=== PATIENT | male | born 1945 | race Caucasian/White ===

== ENCOUNTER 2020-06-25 17:00 | Outpatient (CLI) | payer MEDICARE | END 2020-06-25 17:01 | disposition home or self-care (01) | LOC: COV 17:00 | PROVIDERS: ATTEND Family Medicine | DX: M79.10 Myalgia, unspecified site (principal); R53.83 Other fatigue; R68.83 Chills (without fever); R19.7 Diarrhea, unspecified; Z20.822 Contact with and (suspected) exposure to COVID-19 ==

== ENCOUNTER 2020-07-28 22:05 | Emergency (ER) | payer MEDICARE ==
--- NOTE | 2020-07-28 22:22 | ED Physician Documentation ---
History of Present Illness - Stated complaint Stated Complaint: N/V, DIARRHEA - Chief complaint Chief Complaint: Abd Pain - History obtained from History obtained from: Patient - History of Present Illness Timing: How many days ago (2) Pain level now: 0 Improved by: rest Worsened by: trying to stand (too weak to do so) Associated symptoms: diarrhea - Additonal information Additional information: patient says 2 days ago he had mid/lower back pain (cannot recall if it was on one side or both) with radiation of pain around to upper abdomen. This was associated with nausea and vomiting. He says these symptoms have resolved completely (by the end of the day 2 days ago). He says that yesterday and again today, he slept throughout most of the day, which is entirely abnormal for him. He says he had a few episodes of diarrhea over past 24 hours, and has had in creasing generalized weakness and today had trouble even sitting up. He says that tonight around 6 PM, his woke him up and insisted he come to ED for evaluation. He says he had chills/sweats yesterday but did not measure his temperature then; he did measure it earlier today and it was "normal" (per patient). Review of Systems Constitutional: reports: Chills, Fatigue, Sweats Eyes: reports: Reviewed and negative Ears: reports: Reviewed and negative Nose: reports: Reviewed and negative Throat: reports: Reviewed and negative Cardiac: reports: Reviewed and negative Respiratory: reports: Reviewed and negative GI: reports: Abdominal Pain (2 days ago, resolved), Nausea (resolved 2 days ago), Vomiting (2 days ago but resolved). denies: Abdominal Swelling, Constipation, Diarrhea, Hematemesis, Bloody / black stool : denies: Dysuria, Frequency, Hematuria Skin: reports: Reviewed and negative Musculoskeletal: reports: Reviewed and negative Neurologic: reports: Generalized weakness. 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) PD PAST MEDICAL HISTORY - Past Medical History Past Medical History: Yes Cardiovascular: Hypertension, High cholesterol, Atrial fibrillation Endocrine/Autoimmune: Type 2 diabetes - Past Surgical History Past Surgical History: Yes General: Cholecystectomy, Splenectomy - Present Medications Home Medications: Ambulatory Orders Medication Instructions Recorded Confirmed Allopurinol [Zyloprim] 300 mg PO DAILY 07/28/20 07/28/20 Ezetimibe [Zetia] 10 mg PO DAILY 07/28/20 07/28/20 Lisinopril [Zestril] 2.5 mg PO DAILY 07/28/20 07/28/20 Simvastatin [Zocor] 40 mg PO DAILY 07/28/20 07/28/20 carvediloL [Coreg] 12.5 mg PO BID 07/28/20 07/28/20 metFORMIN [Glucophage] 500 mg PO BID 07/28/20 07/28/20 - Allergies Allergies/Adverse Reactions: Allergies Allergy/AdvReac Type Severity Reaction Status Date / Time No Known Drug Allergies Allergy Verified 07/28/20 22:21 - Living Situation Living Situation: reports: With spouse/s.o. 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, Normal speech Eye Opening: Spontaneous Motor: Obeys Commands Verbal: Oriented GCS Score: 15 PD ED PE EXPANDED - Cardiac Cardiac: Tachy, Irregularly irregular Results - Vitals Vitals: Vital Signs - 24 hr 07/28/20 07/28/20 07/29/20 22:05 22:50 00:19 Temperature 36.8 C 36.8 C 37 C Heart Rate 115 H 105 H 131 H Respiratory 18 15 35 H Rate Blood Pressure 91/56 L 91/56 L 200/175 H O2 Saturation 95 94 07/29/20 07/29/20 07/29/20 00:33 00:40 01:07 Temperature 38.5 C H 39.6 C H Heart Rate 118 H 105 H 103 H Respiratory 33 H 26 H 26 H Rate Blood Pressure 146/76 H 107/66 O2 Saturation 98 97 07/29/20 07/29/20 07/29/20 01:26 01:37 01:44 Temperature 39.2 C H 39.0 C H 38.8 C H Heart Rate 118 H 107 H 100 Respiratory 26 H 24 26 H Rate Blood Pressure 107/71 103/67 99/72 O2 Saturation 98 99 99 07/29/20 07/29/20 07/29/20 01:52 02:14 02:26 Temperature 38.7 C H 38.6 C H 38.4 C H Heart Rate 112 H 106 H 110 H Respiratory 24 24 25 H Rate Blood Pressure 101/75 95/65 86/46 L O2 Saturation 96 3 L 95 07/29/20 07/29/20 07/29/20 02:30 02:33 03:10 Temperature 38.4 C H 38.4 C H 38.2 C H Heart Rate 117 H 104 H 102 H Respiratory 27 H 28 H 24 Rate Blood Pressure 90/60 93/59 L 89/46 L O2 Saturation 99 93 3 L Oxygen O2 Source Nasal cannula Oxygen Flow Rate 3 - EKG (time done) No standard instances Rate: Rate (enter#) (118) Rhythm: Atrial fibrillation Orma: LAD Ischemia: Normal ST segments, T wave inversion (III (and flat T aVF)) - Labs Labs: Laboratory Tests 07/28/20 07/28/20 07/28/20 22:35 22:35 22:35 WBC 37.4 H* RBC 4.92 Hgb 16.4 Hct 46.2 MCV 93.9 MCH 33.3 H MCHC 35.5 RDW 14.5 Plt Count 133 MPV 13.1 H Neut # (Auto) Not Reportable Lymph # (Auto) Not Reportable Lyon # (Auto) Not Reportable Eos # (Auto) Not Reportable Baso # (Auto) Not Reportable Absolute Nucleated RBC Not Reportable Total Counted 100 Band Neuts % (Manual) 20 H Abnorm Lymph % (Manual) 0 Metamyelocytes % 2 H Nucleated RBC % Not Reportable Neutrophils # (Manual) 34.0 H Lymphocytes # (Manual) 0.7 L Monocytes # (Manual) 1.9 H Eosinophils # (Manual) 0.0 Basophils # (Manual) 0.0 Differential Comment MANUAL DIFFERENTIAL WBC Morphology 1+ VACUOLATION Platelet Estimate NORMAL (130-450,000) Platelet Morphology 1+ GIANT PLATELETS RBC Morph Micro Appear NORMAL APPEARANCE PT 31.9 H INR 3.1 H APTT 33.1 Bld Gas Analysis Time Sample Site ABG pH ABG pCO2 ABG pO2 ABG HCO3 ABG Total CO2 ABG O2 Saturation ABG Base Excess Srinivas Test O2 Delivery Device FiO2 Sodium 138 Potassium 4.1 Chloride 101 Carbon Dioxide 18 L Anion Gap 19.0 H BUN 34 H Creatinine 2.3 H Estimated GFR (MDRD) 28 L Glucose 156 H Lactic Acid Calcium 9.6 Total Bilirubin 8.1 H Direct Bilirubin AST 85 H ALT 64 H Alkaline Phosphatase 78 Troponin I High Sens Total Protein 7.0 Albumin 3.8 Globulin 3.2 Albumin/Globulin Ratio 1.2 Lipase 19 L Urine Color Urine Clarity Urine pH Ur Specific Sandborn Urine Protein Urine Glucose (UA) Urine Ketones Urine Occult Blood Urine Nitrite Urine Bilirubin Urine Urobilinogen Ur Leukocyte Esterase Urine RBC Urine WBC Ur Squamous Epith Cells Urine Bacteria Urine Casts Ur Microscopic Review Urine Culture Comments Nasal Adenovirus (PCR) Nasal B. parapertussis DNA (PCR) Nasal Coronavir 229E PCR Nasal Coronavir HKU1 PCR Nasal Coronavir NL63 PCR Nasal Coronavir OC43 PCR Nasal Enterovir/Rhinovir PCR Nasal Influenza B PCR Nasal Influenza A PCR Nasal Parainfluen 1 PCR Nasal Parainfluen 2 PCR Nasal Parainfluen 3 PCR Nasal Parainfluen 4 PCR Nasal RSV (PCR) Nasal B.pertussis DNA PCR Nasal C.pneumoniae (PCR) Maykel Human Metapneumo PCR Nasal M.pneumoniae (PCR) Nasal SARS-CoV-2 (PCR) 07/28/20 07/28/20 07/28/20 22:35 22:35 22:48 WBC RBC Hgb Hct MCV MCH MCHC RDW Plt Count MPV Neut # (Auto) Lymph # (Auto) Lyon # (Auto) Eos # (Auto) Baso # (Auto) Absolute Nucleated RBC Total Counted Band Neuts % (Manual) Abnorm Lymph % (Manual) Metamyelocytes % Nucleated RBC % Neutrophils # (Manual) Lymphocytes # (Manual) Monocytes # (Manual) Eosinophils # (Manual) Basophils # (Manual) Differential Comment WBC Morphology Platelet Estimate Platelet Morphology RBC Morph Micro Appear PT INR APTT Bld Gas Analysis Time Sample Site ABG pH ABG pCO2 ABG pO2 ABG HCO3 ABG Total CO2 ABG O2 Saturation ABG Base Excess Srinivas Test O2 Delivery Device FiO2 Sodium Potassium Chloride Carbon Dioxide Anion Gap BUN Creatinine Estimated GFR (MDRD) Glucose Lactic Acid Calcium Total Bilirubin Direct Bilirubin 1.0 H AST ALT Alkaline Phosphatase Troponin I High Sens 28.7 H* Total Protein Albumin Globulin Albumin/Globulin Ratio Lipase Urine Color Urine Clarity Urine pH Ur Specific Sandborn Urine Protein Urine Glucose (UA) Urine Ketones Urine Occult Blood Urine Nitrite Urine Bilirubin Urine Urobilinogen Ur Leukocyte Esterase Urine RBC Urine WBC Ur Squamous Epith Cells Urine Bacteria Urine Casts Ur Microscopic Review Urine Culture Comments Nasal Adenovirus (PCR) NOT DETECTED Nasal B. parapertussis DNA (PCR) NOT DETECTED Nasal Coronavir 229E PCR NOT DETECTED Nasal Coronavir HKU1 PCR NOT DETECTED Nasal Coronavir NL63 PCR NOT DETECTED Nasal Coronavir OC43 PCR NOT DETECTED Nasal Enterovir/Rhinovir PCR NOT DETECTED Nasal Influenza B PCR NOT DETECTED Nasal Influenza A PCR NOT DETECTED Nasal Parainfluen 1 PCR NOT DETECTED Nasal Parainfluen 2 PCR NOT DETECTED Nasal Parainfluen 3 PCR NOT DETECTED Nasal Parainfluen 4 PCR NOT DETECTED Nasal RSV (PCR) NOT DETECTED Nasal B.pertussis DNA PCR NOT DETECTED Nasal C.pneumoniae (PCR) NOT DETECTED Maykel Human Metapneumo PCR NOT DETECTED Nasal M.pneumoniae (PCR) NOT DETECTED Nasal SARS-CoV-2 (PCR) NOT DETECTED 07/28/20 07/29/20 07/29/20 22:53 00:18 00:25 WBC RBC Hgb Hct MCV MCH MCHC RDW Plt Count MPV Neut # (Auto) Lymph # (Auto) Lyon # (Auto) Eos # (Auto) Baso # (Auto) Absolute Nucleated RBC Total Counted Band Neuts % (Manual) Abnorm Lymph % (Manual) Metamyelocytes % Nucleated RBC % Neutrophils # (Manual) Lymphocytes # (Manual) Monocytes # (Manual) Eosinophils # (Manual) Basophils # (Manual) Differential Comment WBC Morphology Platelet Estimate Platelet Morphology RBC Morph Micro Appear PT INR APTT Bld Gas Analysis Time 0029 Sample Site RIGHT RADIAL ABG pH 7.27 L ABG pCO2 33 L ABG pO2 120 H ABG HCO3 14.6 L ABG Total CO2 15.6 L ABG O2 Saturation 98 ABG Base Excess -11.1 L Srinivas Test POSITIVE O2 Delivery Device NON REBREATHER MASK FiO2 100.00 Sodium Potassium Chloride Carbon Dioxide Anion Gap BUN Creatinine Estimated GFR (MDRD) Glucose Lactic Acid 6.4 H* Calcium Total Bilirubin Direct Bilirubin AST ALT Alkaline Phosphatase Troponin I High Sens Total Protein Albumin Globulin Albumin/Globulin Ratio Lipase Urine Color DARK YELLOW Urine Clarity CLEAR Urine pH 5.0 Ur Specific Sandborn >=1.030 H Urine Protein 30 H Urine Glucose (UA) NEGATIVE Urine Ketones TRACE Urine Occult Blood SMALL H Urine Nitrite POSITIVE H Urine Bilirubin NEGATIVE Urine Urobilinogen 1 (NORMAL) Ur Leukocyte Esterase NEGATIVE Urine RBC 0-5 Urine WBC 4-5 Ur Squamous Epith Cells FEW Squamous Urine Bacteria Many H Urine Casts 6-10 Hyaline Casts Ur Microscopic Review INDICATED Urine Culture Comments INDICATED Nasal Adenovirus (PCR) Nasal B. parapertussis DNA (PCR) Nasal Coronavir 229E PCR Nasal Coronavir HKU1 PCR Nasal Coronavir NL63 PCR Nasal Coronavir OC43 PCR Nasal Enterovir/Rhinovir PCR Nasal Influenza B PCR Nasal Influenza A PCR Nasal Parainfluen 1 PCR Nasal Parainfluen 2 PCR Nasal Parainfluen 3 PCR Nasal Parainfluen 4 PCR Nasal RSV (PCR) Nasal B.pertussis DNA PCR Nasal C.pneumoniae (PCR) Maykel Human Metapneumo PCR Nasal M.pneumoniae (PCR) Nasal SARS-CoV-2 (PCR) - Rads (name of study) chest xray Radiology: Prelim report reviewed, See rad report chest xray (repeat) Radiology: Prelim report reviewed, See rad report PD MEDICAL DECISION MAKING - ED course Complexity details: reviewed results, re-evaluated patient, considered differential, d/w patient, d/w family (d/w (in ED at bedside)) ED course: patient was in NAD for earlier part of ED stay. His test results have several concerning abnormalities, including marked leukocytosis, lactate greater than 6, elevated BUN/creatinine, and elevated bilirubin with minimally elevated transaminases (AST/ALT). Sepsis protocol initiated (including IV fluid bolus and triple antibiotics (cefipime, vancomycin, metronidazole), and I discussed the case with Dr. Harper ([facility] hospitalist). He recommends transfer to higher level of care, as patient's test results are suggestive of sepsis affecting multiple organ systems. At approximately midnight, patient had sudden onset rigors, sudden worsening of tachycardia to 130s-140s (initially presented with 110s EFREN but this had improved to 90s-100s after IV fluids), tachypnea and grossly audible wheezing. His extremities appeared mottled and he was awake and alert but slow to respond to questions. ABG and repeat CXR ordered as well as duoneb. His tachypnea and audible wheezing were marked and I was concerned he would not be able to continue such respiratory effort and thus made preparations to intubate him; I informed him of this and had medications drawn up but, as I was preparing the glidescope, his rigors rapidly resolved along with his tachypnea and wheezing. His pulse ox and blood pressures could not be reliably measured during this event (did not have reliable pleth for pulse ox and his blood pressures were suddenly markedly elevated but this resolved when the rigors ceas ed). Once his rigor stopped, he rapidly registered fever that went as high as 39.3. He did not require intubation. His mental status returned to baseline as his fever improved (but fever did not resolve during remainder of ED stay). Given ofirmev IV. CT A/P undertaken and this demonstrates large left UPJ calculus with evidence of obstruction. D/W Dr. Denis ([facility]), who then put me in touch with Dr. Parker (customer energy specialist at [facility]). Dr. Parker accepts transfer to [facility]. She requests EKG, troponin. She requests kcentra to reverse his warfarin, as patient might need percutaneous nephrostomy. Departure - Departure Disposition: 02 Transfer Acute Care Hosp Clinical Impression: Ureterolithiasis Sepsis Qualifiers: Sepsis type: sepsis due to unspecified organism Sepsis acute organ dysfunction status: with acute organ dysfunction Severe sepsis acute organ dysfunction type: unspecified Severe sepsis shock status: without septic shock Qualified Code(s): A41.9 - Sepsis, unspecified organism Condition: Serious Discharge Date/Time: 07/29/20 03:18
[2020-07-28 22:41] LABS: BASOPHILS % (AUTO) 0.3 %; EOSINOPHILS % (AUTO) 0.1 %; HCT - HEMATOCRIT 46.2 % (42.0-52.0); HGB - HEMOGLOBIN 16.4 g/dL (14.0-18.0); LYMPHOCYTES % (AUTO) 1.2 %; MEAN CORPUSCULAR HEMOGLOBIN 33.3 pg (27.0-31.0); MEAN CORPUSCULAR HGB CONC 35.5 g/dL (32.0-36.0); MEAN CORPUSCULAR VOLUME 93.9 fL (80.0-94.0); NEUTROPHILS % (AUTO) 90.4 %; RED BLOOD COUNT 4.92 10^6/uL (4.70-6.10); RED CELL DISTRIBUTION WIDTH 14.5 % (12.0-15.0)
[2020-07-28] MEDS ORDERED: SODIUM CHLORIDE 0.9% 1,000 ML IV STA (22:41)
[2020-07-28 22:45] LABS: WHITE BLOOD COUNT 37.4 x10^3/uL (4.8-10.8)
[2020-07-28 22:46] LABS: ABNORMAL LYMPHS % (MANUAL) 0 %
[2020-07-28 22:52] LABS: INR 3.1 (0.8-1.2); PT - PROTHROMBIN TIME 31.9 secs (9.9-12.6)
[2020-07-28 22:59] LABS: MEAN PLATELET VOLUME 13.1 fL (7.4-11.4); PARTIAL THROMBOPLASTIN TIME 33.1 secs (24.9-33.3); PLT - PLATELET COUNT 133 10^3/uL (130-450)
[2020-07-28 23:08] LABS: BAND NEUTROPHILS % (MANUAL) 20 %; LYMPHOCYTES # (MANUAL) 0.7 10^3/uL (1.5-3.5); LYMPHOCYTES % (MANUAL) 2 %; METAMYELOCYTES % (MANUAL) 2 %; MONOCYTES # (MANUAL) 1.9 10^3/uL (0.0-1.0); PLATELET ESTIMATE, MANUAL NORMAL (130-450,000) (NORMAL); PLATELET MORPHOLOGY 1+ GIANT PLATELETS (NORMAL); RBC MORPHOLOGY (MULTIPLE) NORMAL APPEARANCE (NORMAL)
[2020-07-28 23:09] LABS: DIFFERENTIAL COMMENT MANUAL DIFFERENTIAL
[2020-07-28 23:15] LABS: ALBUMIN 3.8 g/dL (3.2-5.5); ALBUMIN/GLOBULIN RATIO 1.2 (1.0-2.2); BILIRUBIN,TOTAL 8.1 mg/dL (0.2-1.0); CALCIUM 9.6 mg/dL (8.5-10.3); CREATININE 2.3 mg/dL (0.6-1.2); POTASSIUM 4.1 mmol/L (3.5-5.0)
[2020-07-28] MEDS ORDERED: CEFEPIME 2 GM in SODIUM CHLORIDE 0.9% MINIBAG 100 ML IV STA (23:19)
[2020-07-28] MEDS ORDERED: VANCOMYCIN INJ 2.5 GM in SODIUM CHLORIDE 0.9% 500 ML IV STA (23:19)
[2020-07-28] MEDS ORDERED: metroNIDAZOLE 500 MG/100 ML 500 MG/100 ML BAG IV STA (23:19)
[2020-07-28] MEDS ORDERED: SODIUM CHLORIDE 0.9% 2,000 ML IV STA (23:37)
[2020-07-28] MEDS ORDERED: VANCOMYCIN 1 GM VIAL ONE (23:41)
[2020-07-28 23:46] LABS: B. PARAPERTUSSIS- RESP PCR PAN NOT DETECTED; B. PERTUSSIS- RESP PCR PANEL NOT DETECTED; C. PNEUMONIAE- RESP PCR PANEL NOT DETECTED; CORONAVIRUS 229E-RESP PCR NOT DETECTED; CORONAVIRUS HKU1-RESP PCR NOT DETECTED; CORONAVIRUS NL63-RESP PCR NOT DETECTED; CORONAVIRUS OC43-RESP PCR NOT DETECTED; HUMAN METAPNEUMOVIRUS NOT DETECTED; INFLUENZA A- RESP PCR PANEL NOT DETECTED; INFLUENZA B - RESP PCR PANEL NOT DETECTED; M. PNEUMONIAE- RESP PCR PANEL NOT DETECTED; PARAINFLUENZA VIRUS 1 NOT DETECTED; PARAINFLUENZA VIRUS 2 NOT DETECTED; PARAINFLUENZA VIRUS 3 NOT DETECTED; PARAINFLUENZA VIRUS 4 NOT DETECTED; RHINOVIRUS/ENTEROVIRUS NOT DETECTED; RSV- RESP PCR PANEL NOT DETECTED; SARS-CoV-2 -RESP PCR PANEL NOT DETECTED
[2020-07-29] MEDS ORDERED: IPRATROPIUM/ALBUTEROL 3 ML NEB INH STA (00:18)
[2020-07-29] MEDS ORDERED: SUCCINYLCHOLINE 200 MG/10 ML VIAL IVP STA (00:22)
[2020-07-29] MEDS ORDERED: MIDAZOLAM 2 MG/2 ML VIAL IVP STA (00:22)
[2020-07-29 00:31] LABS: ABG BASE EXCESS -11.1 mmol/L (-2.0-3.0); ABG HCO3 14.6 mmol/L (22.0-26.0); ABG OXYGEN SATURATION 98 % (94-98); ABG PCO2 33 mmHg (34-45); ABG PH 7.27 (7.35-7.45); ABG PO2 120 mmHg (80-100); ABG TCO2 15.6 MMOL/L (21.0-29.0); ALLEN TEST POSITIVE
[2020-07-29 00:35] LABS: GLUCOSE, URINE (UA) NEGATIVE (NEGATIVE); KETONES,URINE (UA) TRACE mg/dL (NEGATIVE); LEUKOCYTE ESTERASE, URINE NEGATIVE (NEGATIVE); NITRITE,URINE POSITIVE (NEGATIVE); OCCULT BLOOD,URINE SMALL (NEGATIVE); PROTEIN,URINE 30 mg/dL (NEGATIVE); UROBILINOGEN,URINE 1 (NORMAL) E.U./dL (NORMAL)
[2020-07-29] MEDS ORDERED: ACETAMINOPHEN 1,000 MG/100 ML 100 ML IV ONE (00:35)
[2020-07-29] MEDS ORDERED: ETOMIDATE 40 MG/20 ML VIAL IVP ONE (00:35)
[2020-07-29] MEDS ORDERED: MIDAZOLAM 2 MG/2 ML VIAL ONE ×3 (00:35→00:45)
[2020-07-29] MEDS ORDERED: PROPOFOL 200 MG/20 ML VIAL IVP ONE (00:35)
[2020-07-29] MEDS ORDERED: KETAMINE 500 MG/10 ML VIAL ONE (00:35)
[2020-07-29] MEDS ORDERED: SUCCINYLCHOLINE 200 MG/10 ML VIAL ONE ×2 (00:36→00:44)
[2020-07-29] MEDS ORDERED: ROCURONIUM 50 MG/5 ML VIAL ONE (00:36)
[2020-07-29 00:46] LABS: BACTERIA,URINE Many /HPF (None Seen); BILIRUBIN,URINE NEGATIVE (NEGATIVE); CASTS, URINE 6-10 Hyaline Casts /LPF; CLARITY,URINE CLEAR (CLEAR); ICTOTEST,URINE NEGATIVE; RBC,URINE 0-5 /HPF (0-5); SQUAMOUS EPITHELIAL CELL,UR FEW Squamous (<= Few)
[2020-07-29] MEDS ORDERED: PROTHROMBIN COMPLEX CONC 500 UNIT VIAL IVP STA (02:39)
[2020-07-29 03:16] VITALS: BP 89/46
--- NOTE | 2020-07-29 07:57 | CT Report ---
PROCEDURE: Abdomen/Pelvis WO INDICATIONS: abd. pain, sepsis TECHNIQUE: Noncontrast 5 mm thick sections acquired from the diaphragms to the symphysis. 5 mm coronal and sagi ttal reformats were then performed. For radiation dose reduction, the following was used: automated exposure control, adjustment of mA and/or kV according to patient size. COMPARISON: None. Correlation is made with the accompanying chest radiographs, 07/28/2020 and 07/22/19. FINDINGS: Image quality: Excellent. ABDOMEN: Lung bases: Lung bases are clear. Heart size is mildly enlarged. A small hiatal hernia is incident ally noted. Solid organs: Liver is normal in size. Gallbladder has been removed. Pancreas is normal in contour s. No adrenal nodules. Status post splenectomy. There is an obstructing stone seen within the left ureteropelvic junction, as on series 3 image 40 me asuring 1 cm. There is associated left-sided hydronephrosis. Mild left-sided perinephric fat strandin g can be seen. No nonobstructing kidney stones can be seen on either side. No right-sided hydronephrosis can be seen . The kidneys demonstrate normal size. Peritoneum and bowel: Unenhanced bowel loops demonstrate normal wall thickness and caliber. No free fluid or air. A moderate amount of stool is seen within the rectum. A normal appendix is incidental ly noted. Diverticulosis can be seen, without matteo findings of active diverticulitis. Nodes and vessels: No retroperitoneal or mesenteric adenopathy by size criteria. Aorta and inferior vena cava are normal in caliber. Miscellaneous: No ventral hernias. PELVIS: Genitourinary: The urinary bladder is decompressed by a Tate catheter. This patient is status post p rostatectomy. Bilateral pelvic clips are seen. Miscellaneous: No inguinal hernias or adenopathy. Bones: No suspicious bony lesions. No vertebral body compression fractures. Age-appropriate degener ative changes are seen. Fusion of the sacroiliac joints can be seen. 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 IMPRESSION: There is a 1 cm obstructing stone seen at the left ureteropelvic junction. There is associated left-s ided hydronephrosis and perinephric fat stranding A moderate amount of stool is seen within the rectum. Incidental note is made of: Mild cardiomegaly Mild hiatal hernia Cholecystectomy Splenectomy Diverticulosis, without active diverticulitis. Normal appendix Prostatectomy Tate catheter Transitional lumbar anatomy, with partial sacralization of L5 Note: No significant discrepancy from the preliminary report. Reviewed by: Clifford Carey MD on 07/29/2020 6:56 AM [facility] Approved by: Clifford Carey MD on 07/29/2020 6:56 AM [facility] Station ID: [id number]
--- NOTE | 2020-07-29 08:01 | XRAY Report ---
PROCEDURE: Chest 1 View X-Ray INDICATIONS: Resp Distress TECHNIQUE: One view of the chest was acquired. COMPARISON: 07/28/2020 FINDINGS: Surgical changes and devices: Cholecystectomy. Lungs and pleura: An incomplete inspiratory result is noted, with low lung volumes and crowding of t he vascular markings. No focal infiltrates are seen. No large pneumothorax or large pleural effusion can be seen. Mild diffuse interstitial prominence can be seen. Mediastinum: Mediastinal contours appear normal. The heart size is at the remaining levels of normal . Bones and chest wall: No suspicious bony lesions. Age-appropriate degenerative changes are seen. Overlying soft tissues appear unremarkable. IMPRESSION: Compared to the prior, this patient is now imaged portably and low lung volumes are noted. On this study, the heart size is at the upper limits of normal and diffuse interstitial prominence ca n be seen. Differential diagnosis includes early CHF and artifact (from imaging technique and the low lung volumes). When clinically appropriate, please consider a standard 2 view chest series, performed in deep inspir ation. Note: No significant discrepancy from the preliminary report. Reviewed by: Clifford Carey MD on 07/29/2020 6:59 AM [facility] Approved by: Clifford Carey MD on 07/29/2020 6:59 AM [facility] Station ID: [id number]
--- NOTE | 2020-07-29 08:02 | XRAY Report ---
PROCEDURE: Chest 2 View X-Ray INDICATIONS: weakness TECHNIQUE: 2 view(s) of the chest. COMPARISON: None. FINDINGS: Surgical changes and devices: Cholecystectomy clips are seen. Lungs and pleura: No pleural effusions or pneumothorax. No focal infiltrates are seen. Minimal und erlying interstitial prominence can be seen. Mediastinum: Mediastinal contours are normal. Heart size is normal. Bones and chest wall: No suspicious bony abnormalities. Age-appropriate degenerative changes are see n. Soft tissues appear unremarkable. IMPRESSION: There is minimal interstitial prominence. This may be related to baseline parenchymal coarsening or e shania pulmonary edema. No focal infiltrates. Note: No significant discrepancy from the preliminary report. Reviewed by: Clifford Carey MD on 07/29/2020 7:01 AM [facility] Approved by: Clifford Carey MD on 07/29/2020 7:01 AM [facility] Station ID: [id number]
== END 2020-07-29 03:18 | disposition short-term general hospital (02) ==
LOC: ED 22:05
DX: A41.9 Sepsis, unspecified organism (principal); R65.20 Severe sepsis without septic shock; N13.2 Hydronephrosis with renal and ureteral calculous obstruction; I48.91 Unspecified atrial fibrillation; I10 Essential (primary) hypertension; E11.9 Type 2 diabetes mellitus without complications; Z79.84 Long term (current) use of oral hypoglycemic drugs; Z20.822 Contact with and (suspected) exposure to COVID-19
CPT/HCPCS: 36415; 36600; 51702; 71045; 71046; 74176; 80053; 81001; 82248; 82803; 83605; 83690; 84484; 85025; 85610; 85730; 87040; 87077; 87086; 87150; 87181; 87631; 93005; 94640; 96361; 96365; 96366; 96368; 96375; 99284; 99291; C9132; J0131; J3370; 0202U; 81003

== ENCOUNTER 2020-10-17 13:53 | Outpatient (CLI) | payer MEDICARE ==
--- NOTE | 2020-10-17 17:42 | Ultrasound Report ---
PROCEDURE: Retroperitoneal INDICATIONS: URETERAL STONE TECHNIQUE: Real-time scanning was performed of the retroperitoneal organs, with image documentation. COMPARISON: Prior CT scan dated 07/21/2020.. FINDINGS: Kidneys: Kidneys are normal in size. Right kidney measures 12.7 cm long; left kidney measures 11.7 cm long. Right renal cortical thickness is 1.6 cm; left renal cortical thickness is 1.6 cm. No christian d masses, hydronephrosis, or nephrolithiasis. Prevoid bladder volume estimated at 194 cc and no post void residual. Right ureteral jet present. IMPRESSION: Possible 3 mm nonobstructing left renal calcification; otherwise normal appearance of the kidneys. Reviewed by: DARION Darling on 10/17/2020 5:41 PM PDT Approved by: Abdulkadir Soto MD on 10/17/2020 5:41 PM PDT Station ID: [id number]
== END 2020-10-17 13:54 | disposition home or self-care (01) ==
LOC: DI 13:53
PROVIDERS: ATTEND Urology
DX: N20.1 Calculus of ureter (principal)

== ENCOUNTER 2021-03-18 09:13 | Outpatient (CLI) | payer MEDICARE ==
--- NOTE | 2021-03-18 10:54 | XRAY Report ---
PROCEDURE: Abdomen 1 View X-Ray INDICATIONS: XR ABDOMEN 1 view URETERAL STONE TECHNIQUE: 1 view of the abdomen were acquired. COMPARISON: CT abdomen and pelvis 07/21/2020. FINDINGS: Surgical changes and devices: Cholecystic clip. Multiple clips in the pelvis. Bowel: No pneumoperitoneum. The bowel gas pattern is normal. Soft tissues: No kidney stone identified. The previously seen left UPJ calculus is not identified. N o masses; visualized solid organ contours appear normal in size. No suspicious abdominal calcificati ons. Bones: No suspicious bony abnormalities. Vertebral body osteophytes. IMPRESSION: No kidney stone is identified. Consider CT KUB for follow-up evaluation. Reviewed by: Albaro Goodson MD on 03/18/2021 10:53 AM [facility] Approved by: Albaro Goodson MD on 03/18/2021 10:53 AM [facility] Station ID: [id number]
== END 2021-03-18 09:14 | disposition home or self-care (01) ==
LOC: DI 09:13
PROVIDERS: ATTEND Physician Assistant Medical
DX: N20.1 Calculus of ureter (principal)

== ENCOUNTER 2021-05-30 10:03 | Outpatient (CLI) | payer MEDICARE ==
[2021-05-30 11:35] VITALS: BP 129/70
--- NOTE | 2021-05-30 11:35 | SLEEP CARE CONSULTATION ---
Information from patient questionnaire entered by Jenny Anguiano MA. I have reviewed and concur with the information entered by Jenny Anguiano MA. This document represents the service I personally performed and the decisions made by , Josephine Keane ARNP. History of Present Illness Service Date and Time: 05/30/2021 1003 Reason for Visit: New patient, Previously diagnosed sleep apnea Chief Complaint: reports: Snoring, Excessive daytime sleepiness, Observed pauses in breathing Date of Onset: YEARS Usual bedtime: 1000 - 1200 PM Time it takes to fall asleep: most times quickly, sometimes will lay there Snores at night: Yes Observed to quit breathing while asleep: Yes (SOMETIMES) Sleeps alone due to snoring: Yes Number of times waking at night: 2 0R 3 Reasons for waking at night: reports: Other. denies: Choking, Snoring, Gasping for air Toss, Turn, or Twitch while sleeping: Yes Recalls having dreams: Yes (SOMETIMES) Usually gets out of bed at: 0700 TO 0800 Feels refreshed in the morning: Yes (SOMETIMES) Morning headache: No Sleepy or fatigued during the day: Yes Ever fallen asleep while driving: No Takes day naps: Yes (not intentional) Dreams during day naps: No Prior sleep studies: Yes Year and Where: [facility] Additional HPI information: I had the pleasure of seeing KEYA LING today regarding the possibility of him having a sleep disorder. He has been on a CPAP in the past. His current complaints are excessive daytime sleepiness, observed pauses in breathing and snoring. He states he was diagnosed with sleep apnea and placed on a CPAP. He used it for about 6 years and then the machine started malfunctioning. He just put off getting it fixed and then decided that he did not need it. He has not been using one for many years. He states his is complaining about his snoring and he does have to sleep in separate room. He is also falling asleep often in the afternoon unintentionally. He does not always wake up feeling refreshed. He has a history of Afib, hypertension, diabetes and gout. - Parasomnia Symptoms Ever been unable to move upon waking from sleep: No Walks in sleep: No Talks in sleep: No Ever acted out dreams in sleep: No Ever felt weak in the knees when startled or emotional: No Bothered by creepy, crawly, restless sensations in legs: No Problems with memory or concentration: Yes (hard to grasp words as much as used to) Subjective Initial [place] Sleepiness Scale score: 13 (2021) Past Medical History Past Medical History: reports: Hypertension, Diabetes, Gout, Arrythmia (Atrial Fibrillation), Other (Hereditary Spherocytosis) Social History The patient's occupation is a RE. Patient is and lives in [place]. Have you smoked in the past 12 months: No Cigarettes per day (20/pack): 20 Years of smokin Quit date: 35 YEARS AGO Smoking Pack Years: 14.0 Alcohol use: Yes Alcohol amount and frequency: 2 - 3 X WEEKLY Caffeine use: Yes Caffeine amount and frequency: 1 X DAILY Family History Family history of sleep disordered breathing: No Allergies and Home Medications Known drug allergies: No Drug allergies reviewed: Yes (NKDA) Home medication list reviewed: Yes Allergy and home medication list: Metformin Ezetimibe Warfarin sodium Simvastatin Lisinopril Allopurinol Carvedilol Multi-vitamin Review of Systems Weight gain over past 5 years: 15 Cardiovascular: reports: high blood pressure, irregular heart rate or pulse Ear/Nose/Throat: reports: wisdom teeth removed Physical Exam Vital signs obtained and entered by: MIGNON TAYLOR Blood Pressure: 129/70 (RIGHT, PULSE 56) Heart Rate: 78 O2 Saturation: 97 (PAPER MASK) Height: 5 ft 9 in Weight: 218 lb (WITH CLOTHES) Body Mass Index: 32.1 BMI Classification: Obese Neck circumference: 18.25 (inches) Mouth and throat: narrow oropharynx Soft palate: long Hard palate: normal Uvula: normal Uvula visualization: 50% Mallampati Class II Tongue: normal in size Tonsils: small Heart: irregular rhythm Lungs: clear bilaterally Impression and Plan 1. Suspected Obstructive Sleep Apnea-Hypopnea Syndrome, as previously diagnosed and as still suggested by a history of loud and irregular snoring, observed cessation of breath while asleep, unrefreshed sleep, cognitive impairment, and excessive daytime sleepiness. I recommend proceeding to polysomnography to confirm the diagnosis and to assess severity. If the patient has significant sleep disordered breathing, a manual CPAP titration study will also be performed to find the optimal treatment pressure. I informed the patient of what the sleep studies involve and after some discussion, obtained agreement to proceed. The pathophysiology of obstructive sleep apnea-hypopnea syndrome was discussed with the patient and health risks of cardiovascular and cerebrovascular disease if not treated. Risks of drowsy driving discussed in detail and patient advised to avoid long distance driving and to ladle puller at the first sign of drowsiness. Patient agreed to plan. * Schedule polysomnography. * Avoid long distance driving or driving when feeling sleepy. * Avoid alcohol, sedative and muscle relaxant around bedtime. * Attempt to lose weight. * Review instructions provided by trained office staff on how to prepare for the sleep study. * Return for follow-up after sleep study completed. Counseling Topics: Weight loss health impact Visit Type: In Office Time Spent with Patient (minutes): 30 Provider Statement: I spent 100% of the Face to Face Visit with the patient with greater than 50% spent counseling the patient and coordination of care.
== END 2021-05-30 10:04 | disposition home or self-care (01) ==
LOC: SC 10:03
PROVIDERS: ATTEND Nurse Practitioner Family
DX: G47.33 Obstructive sleep apnea (adult) (pediatric) (principal); I48.91 Unspecified atrial fibrillation; E11.9 Type 2 diabetes mellitus without complications; I10 Essential (primary) hypertension; E66.9 Obesity, unspecified; Z68.32 Body mass index [BMI] 32.0-32.9, adult; Z79.84 Long term (current) use of oral hypoglycemic drugs; Z79.899 Other long term (current) drug therapy; Z79.01 Long term (current) use of anticoagulants; Z87.891 Personal history of nicotine dependence
CPT/HCPCS: 99203; G0463; 99212

== ENCOUNTER 2021-06-03 12:30 | Outpatient (CLI) | payer MEDICARE | END 2021-06-03 12:31 | disposition home or self-care (01) | LOC: SC 12:30 | PROVIDERS: ATTEND Nurse Practitioner Family | DX: G47.33 Obstructive sleep apnea (adult) (pediatric) (principal); R09.02 Hypoxemia | CPT/HCPCS: G0399 ×2; 95806 ==

== ENCOUNTER 2021-06-13 14:20 | Outpatient (CLI) | payer MEDICARE ==
[2021-06-13 14:54] VITALS: BP 132/75
--- NOTE | 2021-06-13 14:54 | SLEEP CARE CONSULTATION ---
Information from patient questionnaire entered by Jenny Anguiano MA. I have reviewed and concur with the information entered by Jenny Anguiano MA. This document represents the service I personally performed and the decisions made by , Josephine Keane ARNP. History of Present Illness Service Date and Time: 06/13/2021 1420 Initial [place] Sleepiness Scale score: 13 (2021) Current [place] Sleepiness Scale score: 11 (2021) Additional HPI information: KEYA LING returns for follow up and results of the recently performed home sleep study. I explained the pathophysiology behind obstructive sleep apnea. We then spent quite a bit of time discussing different treatment options. For mild obstructive sleep apnea, surgery and oral appliance are alternatives to nasal CPAP therapy but in moderate or severe cases, nasal CPAP is the most effective and reliable treatment. Because apnea is primarily in supine position, then positional management therapy could be effective. Methods discussed such as positioning with pillows to prevent supine sleep. I reviewed the impact of weight changes on sleep apnea and strongly recommended losing weight. After some discussion, the patient opted to go with the nasal CPAP therapy. Nasal autoCPAP set at 4-15 cmH20 will be ordered with rationale explained. A manual titration study will be ordered if unable to find optimal pressure with office adjustments. I explained how CPAP machine works and what to expect when using the machine. Using CPAP every night in order to get used to it was emphasized. Patient advised to put CPAP mask on before getting into bed so as not to fall asleep without CPAP. To assist acclimation to CPAP use, it could also be used for a short time during day while reading or watching TV. The patient was instructed to call the CPAP supplier to discuss any mechanical problem that may occur. If the mask given is uncomfortable or is difficult to keep on through the night even with adjustment, contact the CPAP supplier as many will replace with another mask style if notified before 30 days. If snoring or perceives is not getting enough air or too much air from the machine, notify this office. Patient does not drink alcohol. Patient was cautioned about risks of drowsy driving until sleepiness symptoms resolve. Sleep Study - Results Type of Sleep Study: Home sleep study (F/U HOMESTUDY) Prior sleep studies: Yes Year and Where: [facility] Polysomnography/Home Sleep Study results: Physician Impression: The quality of the study is good. The length of the study is adequate (> 240 minutes). Please also see the tabulated and graphic data. 1. Obstructive Sleep Apnea-Hypopnea (ICD-10 G47.33), severe, with an AHI of 45.0/hr and chloe SaO2 of 73%. During the study, the patient had 211 apneas (211 obstructive, 0 central, 0 mixed) and 24 hypopneas. The longest episode lasted 74.0 seconds. The patient did not sleep supine during this study. 2. Hypoxemia (ICD-10 R09.02), moderate, with the lowest oxygen saturation of 73 % and 48.9 minutes with SaO2 under 90%. Baseline oxygen saturation was normal (Average oxygen saturation was 94%). Allergies and Home Medications Known drug allergies: No Drug allergies reviewed: Yes Home medication list reviewed: Yes (no changes) Allergy and home medication list: Allergies No Known Drug Allergies Allergy (Verified 07/28/20 22:21) Review of Systems Review of systems same as previous: Yes (no changes) Physical Exam Vital signs obtained and entered by: MIGNON TAYLOR Blood Pressure: 132/75 (PULSE 69, RESP. 18, RIGHT,) Cuff size: wrist Heart Rate: 71 O2 Saturation: 98 (WITH PAPER MASK) Height: 5 ft 9 in Weight: 220 lb (W/O CLOTHES) Body Mass Index: 32.5 BMI Classification: Obese Impression and Plan 1. Obstructive Sleep Apnea-Hypopnea Syndrome, severe, with lowest oxygen saturation of 73%. Obviously this is the cause of the patients symptoms of unrefreshed sleep, and excessive daytime sleepiness. Positive pressure therapy could benefit heart arrhythmia, hypertension and diabetes. As mentioned above, the patient will be started on nasal autoCPAP therapy with pressure set at 4-15 cmH2O. A manual titration study will be completed if unable to find optimal treatment pressure with office adjustments. Compliance guidelines also reviewed. A copy of compliance guidelines will be given for reference at check out. 2. Hypoxemia, moderate, with the lowest oxygen saturation of 73 % and 48.9 minutes with SaO2 under 90%. His baseline oxygen saturation was normal with an average oxygen saturation of 94%. * Nasal auto CPAP therapy, pressure at 4-15 cm H2O. * Attempt to lose weight. * Avoid alcohol consumption near bedtime. * Avoid supine sleep until using CPAP. * The patient is again cautioned about driving until sleepiness completely resolves. * Return one month after CPAP obtained. I will assess response to therapy and compliance at that time. Counseling Topics: Weight loss health impact Visit Type: In Office Time Spent with Patient (minutes): 20 Provider Statement: I spent 100% of the Face to Face Visit with the patient with greater than 50% spent counseling the patient and coordination of care.
== END 2021-06-13 14:21 | disposition home or self-care (01) ==
LOC: SC 14:20
PROVIDERS: ATTEND Nurse Practitioner Family
DX: G47.33 Obstructive sleep apnea (adult) (pediatric) (principal); R09.02 Hypoxemia; E66.9 Obesity, unspecified; Z68.32 Body mass index [BMI] 32.0-32.9, adult
CPT/HCPCS: 99213; G0463; 99212

== ENCOUNTER 2021-08-06 09:06 | Outpatient (CLI) | payer MEDICARE ==
--- NOTE | 2021-08-06 09:42 | SLEEP CARE CONSULTATION ---
Information from patient questionnaire entered by Jenny Anguiano MA. I have reviewed and concur with the information entered by Jenny Anguiano MA. This document represents the service I personally performed and the decisions made by Lakhwinder bright Caren J, ARNP. History of Present Illness Service Date and Time: 08/06/2021 0906 Previous diagnosis: Severe, Obstructive Sleep Apnea-Hypopnea Syndrome AHI: 45.0 (in 2021) Reason for follow up: first compliance (06/24 SET UP DATE, RESMED, ) Equipment type: CPAP Equipment obtained from: [facility] (got initial supplies) Mask style: Nasal (Ultra Mirage II) Mask brand: Resmed Backup mask available: No (will need to keep old mask when replaced) Prior sleep studies: Yes Year and Where: [facility] Type of Sleep Study: Home sleep study (F/U HOMESTUDY) HPI additional information: KEYA LING was diagnosed to have severe, AHI 45.0, obstructive sleep apnea- hypopnea syndrome and returned today for CPAP therapy first compliance follow- up. Sleep Study - Results Type of Sleep Study: Home sleep study (F/U HOMESTUDY) Prior sleep studies: Yes Year and Where: [facility] CPAP Compliance Data - Data Reviewed with Patient Average duration of nightly device use: 6 HOURS 39 MINUTES Compliance rate %: 93 Current pressure setting (cmH2O): 4-15 (median 7.2, avg 12.8, max 14.1) Average residual AHI: 8.6 Central apnea: 4.1 Obstructive apnea: 3.5 Average large leak: 14.4 Subjective Patient concerns: reports: mask leak noise (just needs adjustment). denies: aerophagia, mask discomfort, air blowing in eyes, condensation in mask/hose, nasal congestion, dry mouth, nose, throat, epistaxis, other Observed to snore while using device: No Current pressure setting perceived as: comfortable On therapy, patient: reports: sleeping better, awakening more refreshed, being more awake and alert during the day, more rested overall. denies: drowsiness while driving Initial [place] Sleepiness Scale score: 13 (2021) Current [place] Sleepiness Scale score: 9 Allergies and Home Medications Home medication list reviewed: Yes (no changes) Allergy and home medication list: Allergies No Known Drug Allergies Allergy (Verified 07/28/20 22:21) Review of Systems Review of systems same as previous: No (acute bronchitis, resolved) Physical Exam Vital signs obtained and entered by: MIGNON TAYLOR Blood Pressure: 137/72 (RIGHT, 63 PULSE, RESP 16, ) Cuff size: wrist Heart Rate: 64 O2 Saturation: 99 (PAPER) Height: 5 ft 9 in Weight: 225 lb Weight change since last visit: 5 lb gain Body Mass Index: 33.2 BMI Classification: Obese Impression and Plan 1. Obstructive Sleep Apnea-Hypopnea Syndrome, severe, with good treatment compliance and fair apnea control with elevated residual AHI. On CPAP therapy, the patient has better sleep quality and is more rested overall. He has not had any problems with using the CPAP and denies any problems with oral dryness, skin irritation, headaches or epistaxis. The patients pressure will be changed to autoCPAP 13-16 cmH20 for elevation of residual AHI. Patient advised to contact me if pressure change is uncomfortable so that it can be adjusted. Goals for apnea control discussed. Patient's apnea severity and rationale for treatment to reduce apnea, improve sleep quality and reduce cardiovascular and cerebrovascular events was reviewed. I also reviewed the benefit of consistent device use of CPAP for hypertension, arrhythmia and diabetes. Patient gained 5 lbs since last visit. I encouraged him to try to lose weight and he voiced understanding. * Change auto CPAP pressure to 13-16 cmH2O * Notify me if snoring with mask or feeling that the pressure is too much or too little * Attempt to lose weight * Call this office if any problems using CPAP * Return for follow up in 1-2 months, or sooner if concerns arise Counseling Topics: Spare mask, Weight loss health impact Visit Type: In Office Time Spent with Patient (minutes): 20 Provider Statement: I spent 100% of the Face to Face Visit with the patient with greater than 50% spent counseling the patient and coordination of care.
[2021-08-06 09:43] VITALS: BP 137/72
== END 2021-08-06 09:07 | disposition home or self-care (01) ==
LOC: SC 09:06
PROVIDERS: ATTEND Nurse Practitioner Family
DX: G47.33 Obstructive sleep apnea (adult) (pediatric) (principal); E66.9 Obesity, unspecified; Z68.33 Body mass index [BMI] 33.0-33.9, adult
CPT/HCPCS: 99213; G0463; 99212

== ENCOUNTER 2021-10-11 08:21 | Outpatient (CLI) | payer MEDICARE ==
--- NOTE | 2021-10-11 09:29 | SLEEP CARE CONSULTATION ---
Information from patient questionnaire entered by Jenny Anguiano MA. I have reviewed and concur with the information entered by Jenny Anguiano MA. This document represents the service I personally performed and the decisions made by , Josephine Keane ARNP. History of Present Illness Service Date and Time: 10/11/2021 0821 Previous diagnosis: Severe, Obstructive Sleep Apnea-Hypopnea Syndrome AHI: 45.0 (in 2021) Reason for follow up: other (6 WEEK F/U, PRESSURE CHANGE, RESMED, [facility] 06/24/2021, ) Equipment type: CPAP Equipment obtained from: [facility] (has ordered more, not received yet) Mask style: Nasal (Ultra Mirage II) Backup mask available: No (will keep old mask when replaced) Last cushion change: hasn't changed out, fitting fine Prior sleep studies: Yes Year and Where: [facility] Type of Sleep Study: Home sleep study (F/U HOMESTUDY) HPI additional information: KEYA LING was diagnosed to have severe, AHI 45.0, obstructive sleep apnea- hypopnea syndrome and returned today for CPAP therapy 6 week with pressure change follow-up. Sleep Study - Results Type of Sleep Study: Home sleep study (F/U HOMESTUDY) Prior sleep studies: Yes Year and Where: [facility] CPAP Compliance Data - Data Reviewed with Patient Average duration of nightly device use: 5 HOURS 31 MINUTES Compliance rate %: 87 (08/26/2021-10/09/2021, 45 days; 43/45 usage) Current pressure setting (cmH2O): 13-14 Average residual AHI: 8.3 Central apnea: 5.1 Obstructive apnea: 1.9 Hypopnea: 1.1 Average large leak: 60.7 Subjective Missed days of use due to: reports: illness (SURGERY TO THE FACE, ) Patient concerns: reports: dry mouth, nose, throat (occasionally), other (running out of water occasionally) Observed to snore while using device: No Current pressure setting perceived as: comfortable On therapy, patient: reports: sleeping better, awakening more refreshed, being more awake and alert during the day, more rested overall. denies: drowsiness while driving Initial [place] Sleepiness Scale score: 13 (2021) Current [place] Sleepiness Scale score: 9 (10/2021) Allergies and Home Medications Known drug allergies: No Drug allergies reviewed: Yes Home medication list reviewed: Yes (no changes) Allergy and home medication list: Allergies No Known Drug Allergies Allergy (Verified 07/28/20 22:21) Review of Systems Review of systems same as previous: Yes (no changes) Physical Exam Vital signs obtained and entered by: MIGNON TAYLOR Blood Pressure: 122/84 (RIGHT, RESP 20, PULSE 68) Heart Rate: 66 O2 Saturation: 96 (PAPER MASK) Height: 5 ft 9 in Weight: 222 lb (W/O CLOTHES PER PT. ) Weight change since last visit: 3 lb loss Body Mass Index: 32.8 BMI Classification: Obese Impression and Plan 1. Obstructive Sleep Apnea-Hypopnea Syndrome, severe, with good treatment compliance and fair apnea control. On CPAP therapy, the patient has better sleep quality and is more rested overall. Patient really likes the pressure that we changed it to, appendectomy 13 to 14 cm H2O. He has had significant improvement of his sleep apnea with this current pressure with some elevated central apnea index. I will leave the pressure setting at this time for patient comfort. He does feel he is getting better sleep and is more rested overall. Patient denies problems with oral dryness, nasal congestion, epistaxis, skin irritation or aerophagia. Patient has not changed out his nasal cushion since he started. I encouraged him to contact his DME as he does need to update his nasal cushion regularly to get the best seal on the mask. He voiced understanding. Patient advised to contact me if pressure change is uncomfortable so that it can be adjusted. Goals for apnea control discussed. Patient's apnea severity and rationale for treatment to reduce apnea, improve sleep quality and reduce cardiovascular and cerebrovascular events was reviewed. I also reviewed the benefit of consistent device use of CPAP for hypertension, arrhythmia and diabetes. 2. Obesity, unspecified. Patient has lost weight. Currently patients BMI is 32.8. Obesity increases the risk of apnea, CPAP pressure requirements and overall health risks especially cardiovascular and diabetes. Thus patient is advised to continue to try to lose weight. Weight loss can be done with reducing portion size, reducing refined foods and balancing content with vegetables, fruit and whole grain foods. In addition, patient encouraged to get regular exercise. * Continue auto CPAP pressure at 13-14 cmH2O * Notify me if snoring with mask or feeling that the pressure is too much or too little * Attempt to lose weight * Call this office if any problems using CPAP * Return for follow up in 3 months, or sooner if concerns arise Counseling Topics: Spare mask, Weight loss health impact Visit Type: In Office Time Spent with Patient (minutes): 20 Provider Statement: I spent 100% of the Face to Face Visit with the patient with greater than 50% spent counseling the patient and coordination of care.
[2021-10-11 09:30] VITALS: BP 122/84
== END 2021-10-11 08:22 | disposition home or self-care (01) ==
LOC: SC 08:21
PROVIDERS: ATTEND Nurse Practitioner Family
DX: G47.33 Obstructive sleep apnea (adult) (pediatric) (principal); E66.9 Obesity, unspecified; Z68.32 Body mass index [BMI] 32.0-32.9, adult
CPT/HCPCS: 99213; G0463; 99212

== ENCOUNTER 2022-02-05 08:43 | Outpatient (CLI) | payer MEDICARE ==
[2022-02-05 09:11] VITALS: BP 130/80
--- NOTE | 2022-02-05 09:11 | SLEEP CARE CONSULTATION ---
Information from patient questionnaire entered by Eli Villegas. I have reviewed and concur with the information entered by Eli Villegas. This document represents the service I personally performed and the decisions made by , Josephine Keane ARNP. History of Present Illness Service Date and Time: 02/05/2022 0843 Previous diagnosis: Severe, Obstructive Sleep Apnea-Hypopnea Syndrome AHI: 45.0 (in 2021) Reason for follow up: other (4 MONTH F/U ) Equipment type: CPAP Equipment obtained from: [facility] (getting supplies) Mask style: Nasal (Ultra Mirage II) Backup mask available: Yes (old mask) Last cushion change: 4 months Prior sleep studies: Yes Year and Where: [facility] Type of Sleep Study: Home sleep study (F/U HOMESTUDY) HPI additional information: KEYA LING was diagnosed to have severe, AHI 45.0, obstructive sleep apnea- hypopnea syndrome and returned today for CPAP therapy 4 month follow-up. Sleep Study - Results Type of Sleep Study: Home sleep study (F/U HOMESTUDY) Prior sleep studies: Yes Year and Where: [facility] CPAP Compliance Data - Data Reviewed with Patient Average duration of nightly device use: 5 hours, 24 minutes Compliance rate %: 82 (11/06/21 to 02/03/22; 88/90 days used) Current pressure setting (cmH2O): 13-14 Average residual AHI: 6.5 Central apnea: 4.3 Obstructive apnea: 1.0 Subjective Missed days of use due to: reports: travel Patient concerns: reports: dry mouth, nose, throat (occasional, if water reservoir is getting empty). denies: aerophagia, mask discomfort, air blowing in eyes, mask leak noise, condensation in mask/hose, nasal congestion, epistaxis Observed to snore while using device: No Current pressure setting perceived as: comfortable On therapy, patient: reports: sleeping better, awakening more refreshed, being more awake and alert during the day, more rested overall. denies: drowsiness while driving Initial [place] Sleepiness Scale score: 13 (2021) Current [place] Sleepiness Scale score: 6 (02/05/22) Allergies and Home Medications Home medication list reviewed: Yes (no changes) Allergy and home medication list: Allergies No Known Drug Allergies Allergy (Verified 07/28/20 22:21) Review of Systems Review of systems same as previous: Yes (no changes) Physical Exam Vital signs obtained and entered by: COLBY BARKSDALE Blood Pressure: 130/80 (left arm ) Cuff size: regular Heart Rate: 50 O2 Saturation: 96 Height: 5 ft 9 in Weight: 230 lb Body Mass Index: 34.0 BMI Classification: Obese Impression and Plan 1. Obstructive Sleep Apnea-Hypopnea Syndrome, severe, with good treatment compliance and fair apnea control with mildly elevated residual AHI. On CPAP therapy, the patient has better sleep quality and is more rested overall. Patient still has a mildly elevated residual AHI at 6.5. This has improved from his last visit 4 months ago. Patient is still comfortable with current pressure settings and would like to keep him as is. Patient has significant improvement of their sleep apnea and feel he is getting improved sleep with current CPAP therapy. Patient does get minimal oral dryness if he does not have a full water chamber. He states this is not often. Patient denies problems with nasal congestion, epistaxis, skin irritation or aerophagia. Patient's apnea severity and rationale for treatment to reduce apnea, improve sleep quality and reduce c ardiovascular and cerebrovascular events was reviewed. I also reviewed the benefit of consistent device use of CPAP for hypertension, arrhythmia and diabetes. 2. Obesity, unspecified. Currently patients BMI is 34.0. Obesity increases the risk of apnea, CPAP pressure requirements and overall health risks especially cardiovascular and diabetes. Thus patient is advised to lose weight. * Continue auto CPAP pressure at 13-14 cmH2O * Notify me if snoring with mask or feeling that the pressure is too much or too little * Attempt to lose weight * Call this office if any problems using CPAP * Return for follow up in 1 year, or sooner if concerns arise Counseling Topics: Spare mask, Weight loss health impact Visit Type: In Office Time Spent with Patient (minutes): 12 Provider Statement: I spent 100% of the Face to Face Visit with the patient with greater than 50% spent counseling the patient and coordination of care.
== END 2022-02-05 08:44 | disposition home or self-care (01) ==
LOC: SC 08:43
PROVIDERS: ATTEND Nurse Practitioner Family
DX: G47.33 Obstructive sleep apnea (adult) (pediatric) (principal); E66.9 Obesity, unspecified; Z68.34 Body mass index [BMI] 34.0-34.9, adult
CPT/HCPCS: 99212; G0463

== ENCOUNTER 2022-09-01 15:25 | Outpatient (CLI) | payer MEDICARE ==
--- NOTE | 2022-09-01 16:43 | Ultrasound Report ---
PROCEDURE: Retroperitoneal INDICATIONS: NEPHROLITHIASIS TECHNIQUE: Real-time scanning was performed of the retroperitoneal organs, with image documentation. COMPARISON: 10/17/2020 ultrasound. FINDINGS: Kidneys: Kidneys are normal in size. Right kidney measures 13.2 cm long; left kidney measures 12 cm long. Right renal cortical thickness is 1.1 cm; left renal cortical thickness is 1.5 cm. No solid masses nor hydronephrosis. Echogenic 6 mm focus within the inferior pole left kidney. Bladder: Pre-void bladder volume is 582 mL. Post-void residual is 11 mL. Pre-void images demonstra te no intraluminal masses or stones. On pre-void images, no ureteral jets are noted with color Doppl er interrogation. (Of note, ureteral jets may not be detectable in up to 25% of cases due to insuffi cient differences in specific gravity between ureteral and bladder urine). Miscellaneous: No free abdominal fluid. IMPRESSION: 1. No hydronephrosis. 2. Nonobstructing left inferior pole renal calculus. Reviewed by: Tamie Price MD on 09/01/2022 4:42 PM PDT Approved by: Tamie Price MD on 09/01/2022 4:42 PM PDT Station ID: [id number]
== END 2022-09-01 15:26 | disposition home or self-care (01) ==
LOC: DI 15:25
PROVIDERS: ATTEND Physician Assistant Medical
DX: N20.0 Calculus of kidney (principal)

== ENCOUNTER 2023-07-03 09:35 | Outpatient (CLI) | payer MEDICARE ==
--- NOTE | 2023-07-03 10:02 | Sleep Patient Instructions ---
Sleep Center Visit Summary - Patient Visit Information Reason for Visit: Annual follow-up - Patient Instructions Additional Instructions: You will continue with CPAP therapy with pressure set at 13-14 cmH2O. A supply prescription will be updated with your DME. We encourage you to continue to try to lose weight. Please follow up with the sleep care office in 1 year. - Clinic Information Contact: [facility] [address] [place] [address] [email or web address] T: [phone]
--- NOTE | 2023-07-03 10:08 | SLEEP CARE CONSULTATION ---
Information from patient questionnaire entered by Vicky Liz. I have reviewed and concur with the information entered by Vicky Liz. This document represents the service I personally performed and the decisions made by , Josephine Keane ARNP. History of Present Illness Service Date and Time: 07/03/2023 0935 Previous diagnosis: Severe, Obstructive Sleep Apnea-Hypopnea Syndrome AHI: 45.0 (in 2021) Reason for follow up: annual (LAST SEEN 02/2022) Equipment type: CPAP (RESMED SETUP 06/24/2021 AIRSENSE 11 AUTO SET) Equipment obtained from: [facility] (need an update prescription) Mask style: Nasal Mask brand: Resmed (Mirage FX) Backup mask available: No Last cushion change: 1 month Prior sleep studies: Yes Year and Where: [facility] Type of Sleep Study: Home sleep study (F/U HOMESTUDY) HPI additional information: KEYA LING was diagnosed to have severe, AHI 45, obstructive sleep apnea- hypopnea syndrome and returned today for CPAP therapy annual follow-up. Sleep Study - Results Type of Sleep Study: Home sleep study (F/U HOMESTUDY) Prior sleep studies: Yes Year and Where: [facility] CPAP Compliance Data - Data Reviewed with Patient Average duration of nightly device use: 5 HRS 49 MINS Compliance rate %: 82 (07/01/22-06/30/23; 329/365 days used) Current pressure setting (cmH2O): 13-14 Average residual AHI: 6.8 Central apnea: 4.3 Obstructive apnea: 1.4 Hypopnea: 1 Average large leak: 7.5 L/min Subjective Missed days of use due to: reports: travel, other (lights went out) Patient concerns: reports: mask leak noise, epistaxis. denies: aerophagia, mask discomfort, air blowing in eyes, condensation in mask/hose, nasal congestion, dry mouth, nose, throat Observed to snore while using device: No Current pressure setting perceived as: comfortable On therapy, patient: reports: sleeping better, awakening more refreshed, being more awake and alert during the day, more rested overall. denies: drowsiness while driving Initial [place] Sleepiness Scale score: 13 (2021) Current [place] Sleepiness Scale score: 11 (07/03/23) Allergies and Home Medications Known drug allergies: No Drug allergies reviewed: Yes Home medication list reviewed: Yes (no changes) Allergy and home medication list: Allergies No Known Drug Allergies Allergy Review of Systems Review of systems same as previous: Yes (NO CHANGE) Physical Exam Vital signs obtained and entered by: VICKY Mistry MA Blood Pressure: 131/96 (RIGHT ARM) Cuff size: regular Heart Rate: 62 O2 Saturation: 96 Height: 5 ft 9 in Weight: 239 lb 6.4 oz Body Mass Index: 35.3 BMI Classification: Obese Impression and Plan 1. Obstructive Sleep Apnea-Hypopnea Syndrome, severe, with good treatment compliance and good apnea control with mildly elevated residual AHI. On CPAP therapy, the patient has better sleep quality and is more rested overall. Patient has significant improvement of his sleep apnea although current therapy is suboptimal at current pressure settings. Patient is happy with current settings and would like the no change of his pressures. I will make no adjustments today and follow up with him next year. Patient is in need of supplies and we will update his supply prescription with his DME. Patient's apnea severity and rationale for treatment to reduce apnea, improve sleep quality and reduce cardiovascular and cerebrovascular events was reviewed. I also reviewed the benefit of consistent device use of CPAP for hypertension, arrhythmia, diabetes. 2. Obesity, unspecified. Currently patients BMI is 35.3. Obesity increases the risk of apnea, CPAP pressure requirements and overall health risks especially cardiovascular and diabetes. Thus patient is advised to lose weight. * Continue auto CPAP pressure at 13-14 cmH2O * Update supply prescription * Notify me if snoring with mask or feeling that the pressure is too much or too little * Attempt to lose weight * Call this office if any problems using CPAP * Return for follow up in 12 months, or sooner if concerns arise Counseling Topics: Spare mask, Weight loss health impact Prescriptions: Device supplies Follow up with Sleep Care in: 1 year Visit Type: In Office Time Spent with Patient (minutes): 21 Provider Statement: I spent 100% of the Face to Face Visit with the patient with greater than 50% spent counseling the patient and coordination of care.
[2023-07-03 10:12] VITALS: BP 131/96; O2SAT 96
== END 2023-07-03 09:36 | disposition home or self-care (01) ==
LOC: SC 09:35
PROVIDERS: ATTEND Nurse Practitioner Family
DX: G47.33 Obstructive sleep apnea (adult) (pediatric) (principal); E66.9 Obesity, unspecified; Z68.35 Body mass index [BMI] 35.0-35.9, adult
CPT/HCPCS: 99213; G0463; 99212

== ENCOUNTER 2023-11-11 10:00 | Outpatient (CLI) | payer MEDICARE ==
--- NOTE | 2023-11-11 14:29 | XRAY Report ---
PROCEDURE: Knee 3V RT INDICATIONS: KNEE PAIN TECHNIQUE: 3 views of the knee were acquired. COMPARISON: Right knee radiographs 09/05/2011 FINDINGS: Bones: No fractures or dislocations. No suspicious bony lesions. Moderate joint space narrowing o f the medial femorotibial compartment with small marginal osteophytes. Minimal lateral and anterior c ompartment joint space narrowing. Soft tissues: No knee joint effusion. No suspicious soft tissue calcifications or masses. 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 Reviewed by: Logan Delatorre MD on 11/11/2023 2:27 PM PDT Approved by: Logan Delatorre MD on 11/11/2023 2:27 PM PDT Station ID: [id number]
== END 2023-11-11 10:01 | disposition home or self-care (01) ==
LOC: DI 10:00
PROVIDERS: ATTEND Internal Medicine
DX: M17.11 Unilateral primary osteoarthritis, right knee (principal)